=== PATIENT | male | born 1940 | race Caucasian/White ===

== ENCOUNTER 2017-09-01 09:46 | Day surgery (SDC) | payer MEDICARE, BC ==
[2017-09-01] VITALS (12 sets, daily range): BP systolic 104–157; BP diastolic 50–90
[~2017-09-01] VITALS: Ht 167.6 cm; Wt 97.0 kg
[~2017-09-01 09:46] MED LIST: ASPI-1071 PO; ATOR20TA66 PO; DEXL60CA3 PO; GLIM1TAB PO; METO-292 PO; METO25TA6 PO; NITR0.4T48 SL
[2017-09-01] MEDS ORDERED: normal saline 1000ml 1,000 ML IV SCH (10:25)
[2017-09-01] MEDS ORDERED: nitroGLYCERIN 0.4mg SUBLingual tab SL PRN (10:25)
[2017-09-01] MEDS ORDERED: insulin Lispro (HumaLOG) vial - multi-dose SQ SCH (10:25)
[2017-09-01] MEDS ORDERED: diphenhydrAMINE 25mg capsule PO PRN (10:25)
[2017-09-01] MEDS ORDERED: dextrose ORAL solution 15 GM/59 ML bottle PO PRN ×2 (10:25)
[2017-09-01] MEDS ORDERED: glucagon, human recombinant 1mg kit SUBCUT PRN (10:25)
[2017-09-01] MEDS ORDERED: MESSAGE TO PHARMACY PO ONE (10:25)
[2017-09-01] MEDS ORDERED: dextrose 50%-water 50ml dispensing syringe IV PRN ×2 (10:25)
[2017-09-01] MEDS ORDERED: LORazepam 0.5 MG tablet PO PRN (10:25)
[2017-09-01] MEDS ORDERED: ASPI-1265 PO (10:47)
[2017-09-01] MEDS ORDERED: METO25TA6 PO (10:58)
[2017-09-01] MEDS ORDERED: ATOR20TA PO (10:58)
[2017-09-01] MEDS ORDERED: NITR0.4T51 SL (10:58)
[2017-09-01 11:29] LABS: BASOPHILS % (AUTO) 0.3 % (0-1); EOSINOPHILS # (AUTO) 0.2 X10'3 (0-0.9); EOSINOPHILS % (AUTO) 4.1 % (0-6); HEMATOCRIT 34.3 % (42.0-52.0); HEMOGLOBIN 12.1 g/dl (14.0-17.9); LYMPHOCYTES # (AUTO) 1.6 X10'3 (1.1-4.8); LYMPHOCYTES % (AUTO) 35.6 % (21-51); MEAN CORPUSCULAR HEMOGLOBIN 34.6 PG (27.0-31.0); MEAN CORPUSCULAR HGB CONC 35.2 % (33.0-36.5); MEAN CORPUSCULAR VOLUME 98.3 FL (78-98); MEAN PLATELET VOLUME 7.4 FL (7.4-10.4); MONOCYTES # (AUTO) 0.3 X10'3 (0-0.9); MONOCYTES % (AUTO) 7.7 % (2-12); NEUTROPHILS # (AUTO) 2.3 X10'3 (1.8-7.7); NEUTROPHILS % (AUTO) 52.3 % (42-75); PLATELET COUNT 128 X10'3 (140-440); RED BLOOD COUNT 3.49 X10'6 (4.70-6.10); RED CELL DISTRIBUTION WIDTH 13.2 % (11.5-14.5); WHITE BLOOD COUNT 4.4 X10'3 (4.5-11.0)
[2017-09-01 11:38] LABS: ALBUMIN 3.5 G/DL (3.4-5.0); ANION GAP 6 (8-16); BLOOD UREA NITROGEN 29 MG/DL (7-18); BUN/CREATININE RATIO 16.6 (5.4-32.0); CALCIUM 9.1 MG/DL (8.5-10.1); CHLORIDE 103 MMOL/L (99-107); CREATININE 1.75 MG/DL (0.60-1.10); GLUCOSE 214 MG/DL (70-104); POTASSIUM 4.4 MMOL/L (3.5-5.1); SODIUM 137 MMOL/L (135-145); TOTAL CARBON DIOXIDE 27.8 MMOL/L (24-32); eGFR 38 ML/MIN
[2017-09-01] MEDS ORDERED: LIDOcaine 1% w/EPI 1:100,000 30ml vial (MDV) ONE (12:18)
[2017-09-01] MEDS ORDERED: midazolam 2 mg/2 ml injection ONE (12:18)
[2017-09-01] MEDS ORDERED: fentaNYL/PF 50MCG/1 ML 2ML syringe ONE (12:18)
[2017-09-01] MEDS ORDERED: iohexol 350 MG/ML 50ML vial IV ONE (12:18)
[2017-09-01] MEDS ORDERED: iohexol 350MG/ML 100ml bottle IV ONE (12:18)
[2017-09-01] MEDS ORDERED: proCHLORperazine 10 MG/2 ml inj ONE (12:45)
[2017-09-01] MEDS ORDERED: HYDROmorphone 1 mg/ml syringe ONE (12:57)
[2017-09-01] MEDS ORDERED: insulin glargine (Lantus) pen - multi-dose SQ SCH (21:00)
== END 2017-09-01 19:00 | disposition home or self-care (01) ==
LOC: SSTAY O 09:46
PROVIDERS: ATTEND Internal Medicine Cardiovascular Disease
DX: I25.10 Atherosclerotic heart disease of native coronary artery without angina pectoris (principal); I35.0 Nonrheumatic aortic (valve) stenosis; E11.22 Type 2 diabetes mellitus with diabetic chronic kidney disease; I13.0 Hypertensive heart and chronic kidney disease with heart failure and stage 1 through stage 4 chronic kidney disease, or unspecified chronic kidney disease; N18.3 Chronic kidney disease, stage 3 (moderate); I50.9 Heart failure, unspecified; E78.5 Hyperlipidemia, unspecified; K21.9 Gastro-esophageal reflux disease without esophagitis; Z79.82 Long term (current) use of aspirin; Z87.891 Personal history of nicotine dependence; Z96.642 Presence of left artificial hip joint; Z85.820 Personal history of malignant melanoma of skin; Z88.0 Allergy status to penicillin; Z98.890 Other specified postprocedural states; Z79.899 Other long term (current) drug therapy
CPT/HCPCS: 36415; 71046; 80048; 83036; 85025; 85610; 93005; 93458; 99152; 99153; A6257; C1760; C1769; J0780; J1170; J1644; J2250; J3010; J3490; J7030; Q0163; Q9967; A4620